=== PATIENT | male | born 1950 | race Caucasian/White ===

== ENCOUNTER 2018-03-07 05:52 | Day surgery (SDC) | payer MEDICARE ==
[2018-03-07] MEDS ORDERED: TRANEXAMIC ACID 1,000 MG/10 ML ML IV ONE ×3 (05:53)
[2018-03-07] MEDS ORDERED: ROPIVACAINE HCL (NAROPIN) /PF 5MG/ML 20ML VIAL IV ONE (05:53)
[2018-03-07] MEDS ORDERED: PROPOFOL 10 MG/ML VIAL IV ONE (05:53)
[2018-03-07] MEDS ORDERED: *PACU ONLY* KETAMINE HCL 10 MG/ML (20ML) VIAL IV ONE (05:53)
[2018-03-07] MEDS ORDERED: BUPIVACAINE 0.5% W/EPI MPF 30 ML VIAL IVP ONE ×2 (05:53)
[2018-03-07] MEDS ORDERED: 0.9 % SODIUM CHLORIDE 10 ML VIAL IVP ONE (05:53)
[2018-03-07] MEDS ORDERED: DEXAMETHASONE 4 MG/ML 1ML VIAL IVP ONE (05:53)
[2018-03-07] MEDS ORDERED: MIDAZOLAM HCL 2MG/2ML VIAL IV ONE (05:53)
[2018-03-07] MEDS ORDERED: CEFAZOLIN 2 Gram 2 GM/50 ML BAG IVPB ONE (06:00)
[2018-03-07] MEDS ORDERED: MECLIZINE 25 MG TABLET PO ONE (06:00)
[2018-03-07] MEDS ORDERED: VANCOMYCIN HCL 1,000 MG in DEXTROSE 5 % IN WATER 250 ML IVPB ONE ×2 (06:00)
[2018-03-07] MEDS ORDERED: FAMOTIDINE 20MG TABLET PO ONE (06:00)
[2018-03-07] MEDS ORDERED: METOCLOPRAMIDE 10 MG TABLET PO ONE (06:00)
[2018-03-07 07:02] LABS: ABO GROUP A; ANTIBODY SCREEN NEGATIVE (NEGATIVE); RH TYPE POSITIVE
[2018-03-07] MEDS ORDERED: AL HYDROX/MAG HYDROX 30ML UD PO PRN (10:30)
[2018-03-07] MEDS ORDERED: DIPHENHYDRAMINE HCL 25 MG CAPSULE PO PRN (10:30)
[2018-03-07] MEDS ORDERED: ACETAMINOPHEN 325 MG TAB PO PRN (10:30)
[2018-03-07] MEDS ORDERED: HYDROMORPHONE HCL 2 MG/ML VIAL IM PRN (10:30)
[2018-03-07] MEDS ORDERED: MAGNESIUM HYDROXIDE 30 ML UDC PO PRN (10:30)
[2018-03-07] MEDS ORDERED: TRAMADOL HCL 50 MG TABLET PO PRN (10:30)
[2018-03-07] MEDS ORDERED: HYDROCODONE/APAP 10/325 TABLET PO PRN (10:30)
[2018-03-07] MEDS ORDERED: BISACODYL 10 MG SUPP RC PRN (10:30)
[2018-03-07] MEDS ORDERED: KETOROLAC 30 MG/ML VIAL IVP PRN ×2 (10:30)
[2018-03-07] MEDS ORDERED: ACETAMINOPHEN W/ CODEINE 300MG/60MG TABLET PO PRN ×2 (10:30)
[2018-03-07] MEDS ORDERED: ONDANSETRON HCL IV 4 MG/2 ML VIAL IVP PRN (10:30)
[2018-03-07] MEDS ORDERED: NALOXONE 0.4 MG/1 ML VIAL IVP PRN (10:30)
[2018-03-07] MEDS ORDERED: ZOLPIDEM TARTRATE 5 MG TABLET PO PRN (10:30)
[2018-03-07] MEDS ORDERED: ALBUTEROL HFA 8 GM INHALER INH PRN (11:20)
[2018-03-07] MEDS: CEFAZOLIN 1 Gram 2 GM/100 ML BAG IVPB SCH ×2 (15:20→23:22)
[2018-03-07] MEDS: HYDROCODONE/APAP 10/325 TABLET PO PRN ×2 (15:21→22:04)
[2018-03-07] MEDS: GABAPENTIN 100 MG CAPSULE PO SCH ×2 (15:22→22:03)
--- NOTE | 2018-03-07 15:28 | Rehab Evaluation ---
Patient Information - Patient Information Diagnosis: L knee OA Ordered Treatment: PT Evaluate and Treat Status: Initial Evaluation Surgery: Yes (L TKA) Date of Surgery: 03/07/18 Past Medical/Surgical Hx: PAST MEDICAL/SURGICAL HISTORY Past Surgical History Raya? hiatal hernia repair lipoma back LTHA 2016 RTKA 2017 PMH - Respiratory Hx Respiratory Disorders Yes Hx Bronchitis Yes Hx Chronic Obstructive Yes: well controlled with inhalers no recent Pulmonary Disease (COPD) hospitalizations Hx Pneumonia Yes: at age 15 almost Hx of SOB Yes: with exertion Comment: hx pleurisy.damafe to left vocal cord caused from ng 2010 very hoarse. PMH - Cardiovascular Hx Cardiovascular Disorders No Hx Edema Yes: mild ankles Exercise Tolerance Fair Hx of Migraines Yes: on meds good control PMH - Neuro Hx Neurological Disorders Yes Hx Neuropathy Yes: feet no known etiology PMH - GI Hx Gastrointestinal Disorders Yes Hx Gastroesophageal Reflux Yes: hx of had Raya Hx Hiatal Hernia Yes: hx of had sx Hx Pancreatitis Yes: 2010 in hospital x's 3 wks PMH - Hx Genitourinary Disorders Yes Hx Kidney Stones Yes: hx of x's 3 Hx Prostate Problems Yes: BPH PMH - Endocrine Hx Endocrine Disorders No PMH - Musculoskeletal Hx Musculoskeletal Disorders Yes Hx Arthritis Yes: left knee PMH - Psych Hx Psychiatric Problems Yes Hx Anxiety Yes PMH - Hematology/Oncology Hx Hematology/Oncology Yes Disorders Hx Blood Transfusion Reaction No Premorbid Status: Detail (Patient was previously IND with all mobility and ADL' s.) Social History: Detail (Patient currently lives in a 2 story home with his spouse. There are 2 steps to enter the home with 2 hand rails. There is a tub/ shower combo with grab bars. The patient also has an elevated toilet and grab bars located nearby. The patient owns a front wheeled walker and a cane.) Precautions: [place], Fall, Other (WBAT on the L LE.) - Time With Patient Total Time Spent With Patient (Min): 30 Treatment Procedures: Detail (Initial eval, gait training, and education.) Subjective Information - Subjective Information Per Patient (Patient had no complaints of pain.) Objective Data - Pain Pain Present: No - Mental Status Patient Orientation: Oriented x3 - Visual Perception Appears within normal limits for therapeutic activities - ROM Not within normal limits (Patient was limited in L Knee AROM due to status post- surgery.) - Strength/Tone Not within normal limits (Patients L LE strength was limited due to status post- surgery.The patient's R LE was 5/5 except for hip flexors which are 4+/5.) - Coordination Appears within normal limits for therapeutic activities - Bed Mobility Independent (supine to and from sit) - Transfers Independent (Patient was independent with sit to and from stand transfer.During one sit to stand transfer an audible noise was heard that sounded like unfastening of velcro. RN was notified.) - Balance Balance Sitting: Good Balance Standing: Good - Sensation Intact - Gait Detail (Patient ambulated 127' using a front wheeled walker and SBA for safety. WBAT on L LE. The patient exhibited shortness of breath with ambulation and transfers per his report of COPD.) Therapy Assessment - Therapy Assessment Detail (Patient was IND with all bed mobility and transfers. Supervision was required for safety during ambulation. Feel the patient will progress well with mobility.) Patient Education - Patient Education Teaching Topic: Exercise/Activity (Ankle pumps, heel slides, straight leg raise , glut sets, quad sets, and hamstring sets.) Response: Return Demonstration, Verbalize Understanding Teaching Method: Demonstration, Audiovisual Teaching Recipient: Patient Barriers To Learning: Age Related Problem List - Problem List Physical Therapy Problem List: Detail (1) Limited L knee AROM 2) Decrease L LE strength) Goals - Goals Physical Therapy Goals: 1) Complete stair training. All other IP goals met. Prognosis - Prognosis Good Plan - Plan Physical Therapy Plan: Patient will be seen 1 more time for stair training, and will be receiving home health PT after discharge.
[2018-03-07] MEDS ORDERED: CEFAZOLIN 2 G in 0.9% SODIUM CHLORIDE 50ML 50 ML IM SCH (16:00)
[2018-03-07] MEDS ORDERED: ATORVASTATIN 20 MG TABLET PO SCH (22:00)
[2018-03-07] MEDS: DOCUSATE SODIUM 100 MG CAPSULE PO SCH (22:03)
[2018-03-07] MEDS: POTASSIUM CHLORIDE/D5-0.9%NACL 20 MEQ/1,000 ML BAG IV SCH ×2 (22:03→22:05)
[2018-03-08] MEDS: HYDROCODONE/APAP 10/325 TABLET PO PRN ×2 (03:19→09:14)
[2018-03-08] MEDS: POTASSIUM CHLORIDE/D5-0.9%NACL 20 MEQ/1,000 ML BAG IV SCH ×2 (03:20→10:31)
[2018-03-08 06:59] LABS: HEMATOCRIT 41.8 % (42.0-52.0); HEMOGLOBIN 13.9 gm/dl (14.0-18.0)
[2018-03-08 07:11] LABS: BLOOD UREA NITROGEN 10 mg/dL (8-23); CREATININE 0.7 mg/dL (0.7-1.2); EST GLOMERULAR FILTRATION RATE > 60 mL/min; GLUCOSE,RANDOM 137 mg/dL (74-109)
[2018-03-08] MEDS: CEFAZOLIN 1 Gram 2 GM/100 ML BAG IVPB SCH (07:41)
[2018-03-08] MEDS: DOCUSATE SODIUM 100 MG CAPSULE PO SCH (09:14)
[2018-03-08] MEDS: GABAPENTIN 100 MG CAPSULE PO SCH (09:14)
--- NOTE | 2018-03-08 09:18 | Physical Therapy Tx Note ---
Physical Therapy Tx Note - Treatment Note Tolerated: Good Total Time Spent With Patient: 15 Physical Therapy Tx Note: Detail (Patient complained of slight pain in his L knee, but did not rate it using a 1-10 scale. Patient ambulated a flight of 3 stairs with use of hand rail, folded walker, and supervision for safety. Patient also ambulated 171' with a front wheeled walker and supervision assist for safety.WBAT on L knee. Knee flexion was measured at 98 degrees. Patient was IND with all mobility.) Physical Therapy Problem List: Detail (1) Limited L knee AROM 2) Decrease L LE strength) Physical Therapy Goals: 1) Complete stair training (Goal Met). All other IP goals met. Prognosis: Good Physical Therapy Plan: Patient has met all IP goals and will be discharged with home health PT.
[2018-03-08] MEDS ORDERED: RIVAROXABAN 10 MG TABLET PO SCH (10:00)
[2018-03-08] MEDS ORDERED: FERROUS SULFATE 325 MG TAB PO SCH (10:00)
[2018-03-08] MEDS ORDERED: BREO (FLUTICASONE/VILANTEROL) 100MCG/25MCG INHALER INH SCH (10:00)
[2018-03-08] MEDS ORDERED: METOPROLOL SUCC 25 MG TAB.ER PO SCH (10:00)
[2018-03-08] MEDS ORDERED: TAMSULOSIN HCL 0.4 MG CAP.ER.24H PO SCH (10:00)
--- NOTE | 2018-03-08 10:25 | Rehab Evaluation ---
Patient Information - Patient Information Diagnosis: DJD left knee Ordered Treatment: OT Evaluate and Treat Status: Initial Evaluation Surgery: Yes (L TKA) Date of Surgery: 03/07/18 Past Medical/Surgical Hx: PAST MEDICAL/SURGICAL HISTORY Past Surgical History Raya? hiatal hernia repair lipoma back LTHA 2016 RTKA 2017 PMH - Respiratory Hx Respiratory Disorders Yes Hx Bronchitis Yes Hx Chronic Obstructive Yes: well controlled with inhalers no recent Pulmonary Disease (COPD) hospitalizations Hx Pneumonia Yes: at age 15 almost Hx of SOB Yes: with exertion Comment: hx pleurisy PMH - Cardiovascular Hx Cardiovascular Disorders No Hx Edema Yes: mild ankles Exercise Tolerance Fair Hx of Migraines Yes: on meds good control PMH - Neuro Hx Neurological Disorders Yes Hx Neuropathy Yes: feet no known etiology PMH - GI Hx Gastrointestinal Disorders Yes Hx Gastroesophageal Reflux Yes: hx of had Raya Hx Hiatal Hernia Yes: hx of had sx Hx Pancreatitis Yes: 2011 in hospital x's 3 wks PMH - Hx Genitourinary Disorders Yes Hx Kidney Stones Yes: hx of x's 3 Hx Prostate Problems Yes: BPH PMH - Endocrine Hx Endocrine Disorders No PMH - Musculoskeletal Hx Musculoskeletal Disorders Yes Hx Arthritis Yes: left knee PMH - Psych Hx Psychiatric Problems Yes Hx Anxiety Yes PMH - Hematology/Oncology Hx Hematology/Oncology Yes Disorders Hx Blood Transfusion Reaction No Premorbid Status: Detail (Pt lives with spouse in a 2 story house with basement and loft, he generally stays on the 1st floor. He has 2 steps and armin railings at the entrance. He has a tub/shower combination with 2 grab bars, shower seat and hand held shower as well as an elevated toilet with riser and grab bar. He was Ind with all self cares and he and spouse share home mgmt, meal prep and laundry. He has a 2 wheeled walker, straight cane and data center technician.) Precautions: [place], Fall, Other (WBAT on the L LE.) - Time With Patient Total Time Spent With Patient (Min): 35 Treatment Procedures: Detail (OT eval low complexity) Subjective Information - Subjective Information Per Patient Objective Data - Pain Pain Present: No (Pt reports no pain) - Mental Status Patient Orientation: Oriented x3 - Visual Perception Appears within normal limits for therapeutic activities - ROM Within normal limits (Armin UE AROM WNL) - Strength/Tone Within normal limits (Armin UE strength WNL) - Coordination Appears within normal limits for therapeutic activities - Bed Mobility Independent (Ind with supine to sit) - Transfers Independent (Ind with sit to stand from EOB and toilet heights.) - Balance Balance Sitting: Good Balance Standing: Good - Sensation Intact - Gait Detail (Pt ambulating in room with 2 wheeled walker Indly.) - ADL's/IADL's Detail (Pt educated and demonstrated learning of modified LE dressing techniques including donning underwear and shorts, he was Ind with toileting. Pt reports no concerns as he has had previous hip and knee surgeries.) Therapy Assessment - Therapy Assessment Detail (Pt is safe and Ind with modified LE dressing techniques.) Problem List - Problem List Physical Therapy Problem List: Detail (1) Limited L knee AROM 2) Decrease L LE strength) Occupational Therapy Problem List: Detail (No current OT problems identified) Goals - Goals Physical Therapy Goals: 1) Complete stair training (Goal Met). All other IP goals met. Occupational Therapy Goals: No current OT goals identified. Prognosis - Prognosis Good Plan - Plan Physical Therapy Plan: Patient has met all IP goals and will be discharged with home health PT. Occupational Therapy Plan: No further IP OT recommended at this time. Thank you for this referral.
--- NOTE | 2018-03-10 10:03 | Operative Note ---
DATE: 03/07/2018 PREOPERATIVE DIAGNOSIS: END-STAGE ARTHROSIS OF THE LEFT KNEE. POSTOPERATIVE DIAGNOSIS: END-STAGE ARTHROSIS OF THE LEFT KNEE. PROCEDURE: Cemented left total knee arthroplasty using [employer] Renee II components, with a size 7 Oxinium femur, a size 7 stemmed tibial baseplate, a 9 mm lipped tibial insert, and a 35 mm all-plastic patella. STAFF SURGEON: MILVIA EHNRY M.D. ANESTHESIA: SPINAL. PREPARATION: CHLORAPREP. INDIVIDUAL CONSIDERATIONS: NONE. PROCEDURE: The patient was taken to the Operating Room and placed supine on the operating table. He had the successful induction of a spinal anesthetic. His left lower extremity was prepped and then draped in the usual fashion. The patient had a midline approach to the knee. Sharp dissection carried down through the skin and subcutaneous tissue. Small veins were coagulated with a Bovie. A medial arthrotomy was performed. The patella was everted and the knee was flexed. He had exposed bone in the medial and patellofemoral compartments. The fat pad was resected, the ACL was sacrificed, provisional anterior meniscectomies were performed and the capsule was released from the medial proximal tibia. The initial femoral remote ruby on rails developer hole was then made freehand. The intramedullary femoral cutting jig was placed. It was cut in 7.0 degrees of valgus and adjusted for rotation and secured with pins for a 10 mm resection. The initial transverse cut was then made. The skin guide was placed in the anterior and posterior remote ruby on rails developer holes. It was found that a size 7 would be appropriate. The anterior and posterior cuts followed by chamfer cuts were made. Osteophytes were removed and a size 7 trial was found to fit well. The tibia was brought forward and the remainder of the meniscal remnants were removed with a Bovie. The extraarticular tibial cutting jig was placed. It was cut in neutral with a 3 degree AP slope. Care was taken to adjust for rotation and flexion using the extraarticular alignment guide and bony landmarks. It was set for a 9 mm resection, keyed off the high lateral side, and secured with pins. When cutting the tibia, care was taken to preserve the PCL insertion on the tibia. Medial osteophytes were removed and with a size 7 trial, there was excellent stability. With the 9 mm trial insert and the femoral trial, there was excellent motion and stability. Ligamentous balance, rotation, and alignment were thought to be normal. The femoral remote ruby on rails developer holes were impacted and the tibial keel impactor was impacted and these trial components were removed. The patient had a very thick patella and roughly 9 mm of bone was removed freehand. It was found that I could easily fit a 35 patella and the three remote ruby on rails developer holes were drilled. The tourniquet was let down briefly to get bleeders posteriorly and then placed back up again. The knee was then thoroughly irrigated out with pulsatile Betadine and saline to remove any visual or palpable debris. Bony surfaces were then dried. A size 7 stemmed tibial baseplate was cemented into place, followed by impaction of the 9 mm lipped tibial insert, followed by cementing in the size 7 Oxinium femur, followed by cementing in the 35 mm patella. Implant surfaces were compressed, excess cement was removed, and then after the cement had set, there was excellent motion and stability. Ligamentous balance, rotation and alignment and patellofemoral tracking were normal and no lateral release was required. The tourniquet was let down and hemostasis was obtained with a Bovie. After irrigation, 30 mL of Marcaine was then used to infiltrate the skin, subcu, and periosteum. The capsule was then closed with a running #2 Quill. The subcu was closed in layers with a running 0 Quill, the skin was closed with giulia. The patient did receive a gram of Tranexamic Acid preoperatively. I mixed a gram of Tranexamic Acid with 30 mL of saline and injected it into the knee through a sterile #18 gauge needle and a sterile Bulkee compressive FRANDY-type dressing was applied. The patient tolerated the procedures well. Needle and sponge counts were correct. Estimated blood loss was minimal and he was taken back to recovery in good condition. There were no complications. JOB NUMBER: [id number] MTDD
--- NOTE | 2018-03-10 10:07 | Discharge Summary ---
DATE OF ADMISSION: 03/07/2018 DATE OF DISCHARGE: 03/08/2018 DATE OF SURGERY: 03/07/2018 HISTORY: Mr. Roe a delightful 67-year-old male who presents with end-stage arthrosis of his left knee. He was admitted after a left total knee arthroplasty. Postoperatively, he did well. His hospital course was unremarkable. His discharge hemoglobin was 13.9. DISCHARGE INSTRUCTIONS: The plan is to discharge him to home in the care of his family. Home PT and Visiting Nurse have been arranged. He will be given Elizabeth for pain and Xarelto followed by Aspirin for DVT prophylaxis. He will follow-up in my office in four weeks. The Visiting Nurse will remove his sutures in two weeks. FINAL DIAGNOSIS/PRIMARY DIAGNOSIS: END-STAGE ARTHROSIS OF THE LEFT KNEE. OPERATIONS AND PROCEDURES: CEMENTED LEFT TOTAL KNEE ARTHROPLASTY. DISCHARGE CONDITION: GOOD. JOB NUMBER: [id number] MTDD
== END 2018-03-08 12:56 | disposition home health service (06) ==
LOC: SUR 05:52 → MEDSURG 11:12 → SUR 03-08 12:56
PROVIDERS: ATTEND Orthopaedic Surgery
DX: M17.12 Unilateral primary osteoarthritis, left knee (principal); E78.00 Pure hypercholesterolemia, unspecified; I10 Essential (primary) hypertension; J44.9 Chronic obstructive pulmonary disease, unspecified; N40.0 Benign prostatic hyperplasia without lower urinary tract symptoms; G62.9 Polyneuropathy, unspecified
CPT/HCPCS: 27447; 01402; 85018; 85014; 80048; 86900; 86901; 86850; 94640; J3370; J0690 ×3; J3490 ×3; J2795; G8978; G8979 ×2; G8980; G8987; G8988; G8989; J3480; J7060